=== PATIENT | female | born 1950 | race Caucasian/White ===

== ENCOUNTER 2017-06-16 12:20 | Emergency (ER) | payer SELFPAY ==
[~2017-06-16] VITALS: Ht 172.7 cm; Wt 85.2 kg
[2017-06-16 14:49] LABS: HEMATOCRIT 43.2 % (36.0-46.0); MCH 29.4 PG (29.0-34.0); MCHC 33.3 G/DL (30.0-36.0); MCV 88.2 FL (83-99); MEAN PLAT.VOLUME 10.1 uM^3 (9.5-12.4); PLATELET COUNT 289 K/uL (156-360); RBC DIS.WIDTH-CV 13.5 % (11.8-14.6); RBC DIS.WIDTH-SD 44.1 % (39-53)
[2017-06-16 14:57] LABS: CHLORIDE 105 mEq/L (99-109); POTASSIUM 3.9 mEq/L (3.7-5.4); SODIUM 139 mEq/L (136-147)
[2017-06-16 14:59] LABS: GLUCOSE 103 mg/dL (70-99)
[2017-06-16 15:00] LABS: ANION GAP 11 MEQ/L (2-14)
[2017-06-16 15:03] LABS: GFR ESTIMATE (CALCULATED) > 59 mL/min/; UREA NITROGEN (BUN) 16 mg/dL (9-23)
[2017-06-16 15:08] LABS: ADD MIUA? YES; BILIRUBIN NEGATIVE; BLOOD MODERATE; COLOR YELLOW ((YELLOW)); GLUCOSE (STRIP) NEGATIVE; KETONES NEGATIVE; LEUKOCYTES SMALL; NITRITE NEGATIVE; PROTEIN (STRIP) NEGATIVE; SPECIFIC GRAVITY 1.023 (1.000-1.030); UROBILINOGEN 0.2 MG/DL (0.2-1.0)
[2017-06-16 15:14] LABS: BACTERIA RARE /HPF; EPITHELIAL CELLS 1+ /HPF; MUCUS TRACE /LPF; RED BLOOD CELLS 0-5 /HPF (0-5); WHITE BLOOD CELLS 15-20 /HPF (0-5)
[2017-06-16] MEDS ORDERED: MOTRIN600 MG PO (15:51)
[2017-06-16] MEDS ORDERED: NORCO 5/3251 TABLET PO (15:51)
[2017-06-16 16:17] VITALS: BP 134/82
== END 2017-06-16 16:18 | disposition home or self-care (01) ==
LOC: EME 12:20
PROVIDERS: Physician Assistant
DX: M54.5 Low back pain (principal); M62.838 Other muscle spasm; R31.9 Hematuria, unspecified; Z90.710 Acquired absence of both cervix and uterus
CPT/HCPCS: 74176; 80048; 81003; 85027; 99281; 99284; J1885